=== PATIENT | female | born 1985 | race Asian ===

== ENCOUNTER 2016-05-08 18:18 | Emergency (ER) | payer OTHER ==
[2016-05-08 18:55] VITALS: BP 122/77
[2016-05-08] MEDS ORDERED: Ibuprofen TAB* 600 MG PO ONE (19:03)
[2016-05-08] MEDS ORDERED: Oseltamivir CAP* 75 MG PO ONE (19:21)
--- NOTE | 2016-05-08 19:21 | UC ---
FLU HPI - HPI Summary HPI Summary: fever, sore throat body aches, myalgia began about 24 hours ago took 500 mg Tylenol earlier today, was able to work all day today - History of Current Complaint Chief Complaint: UCRespiratory Stated Complaint: FEVER, SORE THROAT, AND NAUSEA Time Seen by Provider: 05/08/16 19:02 Hx Obtained From: Patient Hx Last Menstrual Period: 05/06/16 ?: No Onset/Duration: Sudden Onset, Lasting Days - 1, Still Present Severity Currently: Moderate Severity Initially: Mild Pain Intensity: 4 Pain Scale Used: 0-10 Numeric Associated Signs & Symptoms: Positive: Fever, Myalgia, Cough, Sore Throat, Nasal Congestion - Allergy/Home Medications Allergies/Adverse Reactions: Allergies Allergy/AdvReac Type Severity Reaction Status Date / Time No Known Allergies Allergy Verified 05/08/16 18:55 PMH/Surg Hx/FS Hx/Imm Hx Previously Healthy: Yes Endocrine History Of: Denies: Diabetes, Thyroid Disease Cardiovascular History Of: Denies: Cardiac Disorders, Hypertension Respiratory History Of: Denies: COPD, Asthma GI/ History Of: Denies: Ulcer - Surgical History Surgical History: None - Family History Known Family History: Positive: None Family History: no cardiovascular issues in family lineage - Social History Occupation: Employed Full-time - gis software developer Lives: With Family Alcohol Use: Occasionally Substance Use Type: None Smoking Status (MU): Never Smoked Tobacco Have You Smoked in the Last Year: No Review of Systems Constitutional: Fever, Chills, Fatigue Skin: Negative Eyes: Negative ENT: Sore Throat Respiratory: Cough Cardiovascular: Negative Gastrointestinal: Other - nausea Genitourinary: Negative Motor: Negative Neurovascular: Negative Musculoskeletal: Arthralgia, Myalgia Neurological: Negative Psychological: Negative All Other Systems Reviewed And Are Negative: Yes Physical Exam Triage Information Reviewed: Yes Appearance: Well-Nourished, Ill-Appearing - mild, Pain Distress - mild Vital Signs: Initial Vital Signs Temp 105.2 F 05/08/16 18:49 Pulse 105 05/08/16 18:49 Resp 20 05/08/16 18:49 BP 122/77 05/08/16 18:49 Pulse Ox 99 05/08/16 18:49 Vital Signs Reviewed: Yes Eye Exam: Normal Eyes: Positive: Conjunctiva Clear ENT Exam: Normal ENT: Positive: Normal ENT inspection, Hearing grossly normal, Pharynx normal, TMs normal. Negative: Nasal congestion, Nasal drainage, Tonsillar swelling, Tonsillar exudate, Trismus, Muffled/hoarse voice Dental Exam: Normal Neck exam: Normal Neck: Positive: Supple, Nontender, No Lymphadenopathy Respiratory Exam: Normal Respiratory: Positive: Chest non-tender, Lungs clear, Normal breath sounds, No respiratory distress, No accessory muscle use Cardiovascular Exam: Normal Cardiovascular: Positive: No Murmur, Pulses Normal, Brisk Capillary Refill, Tachycardia Abdomen Description: Positive: Nontender, No Organomegaly, Soft Bowel Sounds: Positive: Present Musculoskeletal Exam: Normal Musculoskeletal: Positive: Strength Intact, ROM Intact, No Edema Neurological Exam: Normal Neurological: Positive: Alert Psychological Exam: Normal Skin Exam: Normal Diagnostics - Laboratory Diagnostic Studies Completed/Ordered: Influenza A (+), small ketones in urine Re-Evaluation - Re-Evaluation First Eval Change: Improved - temp down to 100.9, voiding tolerating fluids well Flu Course/Dx - Course Course Of Treatment: rest, tamiflu, increase fluids, follow with pcp, ibuprofen , tylenol, - Differential Dx/Diagnosis Differential Diagnosis/HQI/PQRI: Influenza, Pneumonia, RSV, Upper Respiratory Infection Provider Diagnoses: INfluenza A Discharge - Discharge Plan Condition: Stable Disposition: HOME Prescriptions: Oseltamivir CAP* [Tamiflu CAP*] 75 mg PO BID #9 cap Patient Education Materials: Ibuprofen (By mouth), Oseltamivir (By mouth), Influenza (ED) Forms: *Work Release Referrals: Carlota Mohr NP [Primary Care Provider] - If Needed
== END 2016-05-08 20:22 | disposition home or self-care (01) ==
LOC: UCEAST 18:18
DX: J09.X2 Influenza due to identified novel influenza A virus with other respiratory manifestations (principal)
CPT/HCPCS: 81002; 87502; 99212; A9270-GY; G0463